=== PATIENT | male | born 2000 | race Caucasian/White ===

== ENCOUNTER 2023-05-09 06:07 | Emergency (ER) | payer BC, SELFPAY ==
[2023-05-09 06:11] VITALS: BP 147/74; PULSE 76; RESP 18; TEMP 36.7; O2SAT 99; BMI 36.5
[2023-05-09 06:21] VITALS: PULSE 73
--- NOTE | 2023-05-09 06:30 | ECG_ITS ---
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
--- NOTE | 2023-05-09 06:30 | ED.GENADUL1 ---
HPI - General Adult General Chief complaint: Chest Pain Stated complaint: CHEST PAIN Time Seen by Provider: 05/09/23 06:16 History of Present Illness HPI narrative: Patient developed pain in the left anterior shoulder last night while jurgen. No known injury. Pain is non-radiating. he took nothing for the pain prior to coming to the ED. No chest pain or shortness of breath. He was concerned because his father had an acute AL and at a young age. Related Data Home Medications Medication Instructions Recorded Confirmed No Known Home Medications 05/09/23 05/09/23 Allergies Allergy/AdvReac Type Severity Reaction Status Date / Time No Known Drug Allergies Allergy Verified 05/09/23 06:15 PFSH PFS Social History Smoking status: Former smoker Exam Narrative Exam Narrative: Nurses notes and vital signs reviewed and patient is not hypoxic. afebrile General: Well-appearing and in no apparent distress. Skin: Warm, dry, no pallor noted. No rash. Head: Normocephalic, atraumatic. Eye: Pupils are equal, round and EOMI. No scleral icterus. Cardiovascular: Regular Rate and Rhythm without murmur, gallop or rub. Respiratory: No accessory muscle use or respiratory distress. Lungs are clear to auscultation, no wheezing, rales or rhonchi Musculoskeletal: Soft tissue tenderness to the anterior and superior left shoulder, with normal ROM throughout the left UE. no upper extremity edema/swelling Neurological: A&O x4. No cranial nerve dysfunction observed. No truncal ataxia. Moves all extremities. Sensation intact. Psychiatric: Cooperative and interactive. Normal mood and affect. Constitutional Vital Signs, click to edit/add: Last Vital Signs Temp 98.0 F 05/09/23 06:11 Pulse 76 05/09/23 06:11 Resp 18 05/09/23 06:11 BP 147/74 H 05/09/23 06:11 Pulse Ox 99 05/09/23 06:11 O2 Del Method Room Air 05/09/23 06:11 Course Vital Signs Vital signs: Vital Signs Temperature 98.0 F 05/09/23 06:11 Pulse Rate 76 05/09/23 06:11 Respiratory Rate 18 05/09/23 06:11 Blood Pressure 147/74 H 05/09/23 06:11 Pulse Oximetry 99 05/09/23 06:11 Oxygen Delivery Method Room Air 05/09/23 06:11 Temperature 98.0 F 05/09/23 06:11 Pulse Rate 76 05/09/23 06:11 Respiratory Rate 18 05/09/23 06:11 Blood Pressure 147/74 H 05/09/23 06:11 Pulse Oximetry 99 05/09/23 06:11 Oxygen Delivery Method Room Air 05/09/23 06:11 Medical Decision Making MDM Narrative Medical decision making narrative: EKG obtained due to patient's concern. Repolarization changes typical for a patient this age. Patient given reassurance as exam consistent with musculoskeletal etiology of the pain. Given Toradol PO before discharge home and instructed to take motrin if pain continues. PCP follow up recommended ECG Data Attestation: I personally reviewed and interpreted this ECG as follows: Interpretation: EKG interpretation: Emergency Department physician interpretation. Normal sinus rhythm at 70bpm. Repolarization changes noted. Normal axis, normal intervals and no ST segment elevation or deep depression. Discharge Plan Discharge Chief Complaint: Chest Pain Clinical Impression: Acute pain of left shoulder Patient Disposition: Home, Self-Care Time of Disposition Decision: 06:35 Prescriptions / Home Meds: No Action No Known Home Medications Instructions: Shoulder Pain (ED) Stand Alone Forms: Portal Instructions Referrals: Prem GONZALES [Primary Care Provider] - 1 week
[2023-05-09] MEDS: KETOROLAC TROMETHAMINE 10 MG TABLET PO (06:41)
== END 2023-05-09 06:45 | disposition home or self-care (01) ==
PROVIDERS: Emergency Provider Emergency Medicine; Family Provider Family Medicine; PCP Family Medicine
DX: M25.512 Pain in left shoulder (principal); Z87.891 Personal history of nicotine dependence
CPT/HCPCS: 93005; 99283